=== PATIENT | female | born 1990 | race Asian ===

== ENCOUNTER → 2020-08-19 | Outpatient (CLI) | payer OTHER | LOC: MHCPAIN 14:08 | DX: M47.812 Spondylosis without myelopathy or radiculopathy, cervical region (principal); M54.2 Cervicalgia; G89.29 Other chronic pain; M54.12 Radiculopathy, cervical region | CPT/HCPCS: G0463 ==

== ENCOUNTER → 2020-08-20 | Outpatient (CLI) | payer OTHER | LOC: MHCPAIN 09:49 | DX: M47.812 Spondylosis without myelopathy or radiculopathy, cervical region (principal); M54.12 Radiculopathy, cervical region | CPT/HCPCS: J0461; J1100; Q9967 ==